=== PATIENT | male | born 1995 | race Caucasian/White ===

== ENCOUNTER 2017-05-02 16:46 | Emergency (ER) | payer OTHER ==
[2017-05-02 16:56] VITALS: BP 150/93
[2017-05-02] MEDS ORDERED: LIDOCAINE MPF 1%-EPI 1:200000 30 ML VIAL SUBQ STA (17:59)
[2017-05-02] MEDS ORDERED: LIDOCAINE 2%-EPI 1:100000 20 ML MDV ONE (18:04)
--- NOTE | 2017-05-02 18:04 | ED Physician Documentation ---
History of Present Illness - Stated complaint Stated Complaint: L ARM LAC - Chief complaint Chief Complaint: Laceration - Additonal information Additional information: hx from pt healthy AD [place] male reached into a box and there was a knife in the box and he cut the dorsal aspect of his mid R FA Review of Systems Skin: reports: Laceration (s) PD PAST MEDICAL HISTORY - Present Medications Home Medications: Ambulatory Orders Medication Instructions Recorded Confirmed No Known Home Medications [No 05/02/17 05/02/17 Known Home Medications] - Allergies Allergies/Adverse Reactions: Allergies Allergy/AdvReac Type Severity Reaction Status Date / Time No Known Drug Allergies Allergy Verified 05/02/17 16:55 PD ED PE NORMAL - Vitals Vital signs reviewed: Yes (HR noted, suspect pt anxious, will recheck) - Cardiac Cardiac: RRR - Respiratory Respiratory: No respiratory distress, Clear bilaterally - Derm Derm: Other (approx 3 cm linear lac, MSV intact) Results - Vitals Vitals: Vital Signs - 24 hr 05/02/17 16:52 Temperature 36.5 C Heart Rate 114 H Respiratory 16 Rate Blood Pressure 150/93 H O2 Saturation 100 Oxygen O2 Source Room air Procedures - Laceration (location) R FA Length in cm: 3 Wound type: Linear Neurovascular status: Sensory intact, Motor intact Tendon involvement: Tendon intact Anesthesia: Lidocaine 1% with epi Wound Preparation: Irrigated copiously NS (by [employer]), Wound explored, To the base. No: FB identified Skin layer closure: Nylon, Interrupted, Size #-0 - enter number (4), Sutures - enter # (6) Other: Patient tolerated well, Neurovascular intact, Dressing applied, Tetanus UTD. No: No complications (little vasovagal so laid pt flat to complete procedure, he recovered s intervention) Complexity: Simple Departure - Departure Disposition: Home, Self Care Clinical Impression: Laceration Condition: Good Instructions: ED Laceration All Follow-Up: [facility] Charles Patricia [Provider Group] Comments: Keep wound clean Apply antibiotic ointment twice a day Sutures out 10 days - your doctor at [facility] can do this for you. Even with good wound care in healthy patients like you, some wound become infected - if you notice increased pain redness streaking or drainage, please come back to the ER
== END 2017-05-02 18:25 | disposition home or self-care (01) ==
LOC: ED 16:46
DX: S51.812A Laceration without foreign body of left forearm, initial encounter (principal); W26.0XXA Contact with knife, initial encounter
CPT/HCPCS: 12002; 99282